=== PATIENT | female | born 1960 | race Native Hawaiian/Other Pacific Islander ===

== ENCOUNTER 2016-08-22 00:24 | Emergency (ER) | payer OTHER ==
[2016-08-22 00:42] VITALS: PULSE 99; TEMP 97.9
[2016-08-22 01:43] VITALS: RESP 16
--- NOTE | 2016-08-22 02:02 | C.PDOC ---
Time Seen by Provider: 08/22/16 01:03 Chief Complaint (Nursing): High Blood Pressure Past Medical History Vital Signs: Last Vital Signs Temp 97.9 F 08/22/16 00:36 Pulse 99 H 08/22/16 00:36 Resp 16 08/22/16 01:42 BP 134/80 08/22/16 01:42 Pulse Ox 100 08/22/16 00:36 - Medical History PMH: Arthritis, HTN - Social History Hx Alcohol Use: No Hx Substance Use: No - Immunization History Hx Tetanus Toxoid Vaccination: No Hx Influenza Vaccination: Yes Hx Pneumococcal Vaccination: Yes ED Course And Treatment O2 Sat by Pulse Oximetry: 100 (Room air) Pulse Ox Interpretation: Normal Disposition - Disposition Referrals: Non [facility] Provider, [Primary Care Provider] -
--- NOTE | 2016-08-22 02:05 | C.PDOC ---
History Of Present Illness 55 y.o female with history of CVA presents to the ED with complaints of high blood pressure 170/100 and mild headache. Patient reports she was at home and started feeling very worried and upset and then checked her BP. She states she has been feeling anxious and upset over recent loss in the family. She feels alone at home because her is currently hospitalized for pneumonia. Patient seen 2 weeks ago for TIA and has been having intermittent headaches since. She has right hemiparesis from old CVA. Time Seen by Provider: 08/22/16 01:03 Chief Complaint (Nursing): High Blood Pressure History Per: Patient, Family (Son) History/Exam Limitations: no limitations Onset/Duration Of Symptoms: Days, Intermittent Episodes Current Symptoms Are (Timing): Better Associated Symptoms: Headache. denies: Chest Pain Exacerbating Factor(s): Pos: Recently Missed Doses Of Medication Past Medical History Reviewed: Historical Data, Nursing Documentation, Vital Signs Vital Signs: Last Vital Signs Temp 97.9 F 08/22/16 00:36 Pulse 99 H 08/22/16 00:36 Resp 16 08/22/16 02:33 BP 136/85 08/22/16 02:33 Pulse Ox 98 08/22/16 02:33 - Medical History PMH: Arthritis, HTN Family History: States: Unknown Family Hx - Social History Hx Alcohol Use: No Hx Substance Use: No - Immunization History Hx Tetanus Toxoid Vaccination: No Hx Influenza Vaccination: Yes Hx Pneumococcal Vaccination: Yes Review Of Systems Constitutional: Negative for: Fever Cardiovascular: Negative for: Chest Pain, Palpitations Respiratory: Negative for: Cough, Shortness of Breath Gastrointestinal: Negative for: Vomiting, Abdominal Pain, Diarrhea Skin: Negative for: Rash, Bruising Neurological: Positive for: Weakness (right sided from prior CVA), Headache. Negative for: Numbness, Dizziness Psych: Positive for: Anxiety, Depression Physical Exam - Physical Exam Appears: Non-toxic, No Acute Distress Skin: Warm, Dry, No Diaphoretic, No Pale Head: Atraumatic, Normacephalic, No Tenderness, No Swelling Eye(s): bilateral: Normal Inspection, PERRL, EOMI Nose: Normal Oral Mucosa: Moist Neck: Normal ROM, Supple Chest: Symmetrical, No Tenderness Cardiovascular: Rhythm Regular, No Murmur Respiratory: Normal Breath Sounds, No Wheezing Gastrointestinal/Abdominal: Soft, No Tenderness, No Guarding Back: Normal Inspection, No Vertebral Tenderness, No Paraspinal Tenderness Extremity: No Tenderness, No Calf Tenderness, No Swelling, Other (Right arm contracture and hemiparesis) Pulses: Left Radial: Normal Neurological/Psych: Oriented x3, Normal Speech, Other (right sided hemiparesis) Gait: With Assistance (uses cane) ED Course And Treatment O2 Sat by Pulse Oximetry: 100 (Room air) Pulse Ox Interpretation: Normal - CT Scan/US CT Head w/o contrast Other Rad Studies (CT/US): Interpreted By Me, Read By Radiologist CT/US Interpretation: EXAM: CT Head Without Intravenous Contrast. CLINICAL HISTORY: 55 years old, female; Pain; Headache; Headache not specified; Additional info: HTN, headache, h. O. CVA. TECHNIQUE: Axial computed tomography images of the head/brain without intravenous contrast. This CT exam. was performed using one or more of the following dose reduction techniques: automated exposure. control, adjustment of the mA and/or kV according to patient size, and/or use of iterative. reconstruction technique. COMPARISON: No relevant prior studies available. FINDINGS: Brain: There is encephalomalacia at the left high parietal region compatible with old infarct. There is. no evidence of intracranial hemorrhage. No evidence of acute territorial infarction. Ventricles: Unremarkable. No ventriculomegaly. Bones/ joints: Unremarkable. No acute fracture. Soft tissues: Unremarkable. Sinuses: Unremarkable as visualized. No acute sinusitis. Mastoid air cells: Unremarkable as visualized. No mastoid effusion. IMPRESSION: 1. There is encephalomalacia at the left high parietal region compatible with old infarct. 2. No evidence for acute intracranial abnormality or displaced calvarial fracture. 3. Additional incidental and/or chronic findings as described. Medical Decision Making Medical Decision Making: Impression: 55 y.o female with HTN and likely anxiety Plan: * Head CT Progress: BP checked by me and is 134/80 Patient remained alert and oriented in no acute distress. Son and family at bedside. CT shows no acute intracranial abnormality. Patient is no longer anxious and feels comfortable going home. will discharge and instruct to follow up with primary doctor. Disposition Counseled Patient/Family Regarding: Diagnosis, Need For Followup - Disposition Referrals: Non [facility] Provider, [Primary Care Provider] - Disposition: HOME/ ROUTINE Disposition Time: 02:03 Condition: STABLE Additional Instructions: Follow up with your primary medical doctor or clinic in 2-5 days for further evaluation. Take your usual medications as prescribed. Return to the emergency department at any time if symptoms persist or worsen. Instructions: Anxiety (ED) - POA Present On Arrival: None - Clinical Impression Clinical Impression: H/O: CVA (cerebrovascular accident), Anxiety and depression, Feeling grief
[2016-08-22 02:34] VITALS: BP 136/85
[2016-08-22 03:23] VITALS: O2SAT 100
--- NOTE | 2016-08-22 08:22 | CT ---
PROCEDURE: CT HEAD WITHOUT CONTRAST. HISTORY: Hypertension, headache, h.o CVA COMPARISON: None available. TECHNIQUE: Axial computed tomography images were obtained through the head/brain without intravenous contrast. Radiation dose: Total exam DLP = 742 mGy-cm. This CT exam was performed using one or more of the following dose reduction techniques: Automated exposure control, adjustment of the mA and/or kV according to patient size, and/or use of iterative reconstruction technique. FINDINGS: HEMORRHAGE: No intracranial hemorrhage. BRAIN: No mass effect or edema. Encephalomalacia at the left high parietal region compatible with old infarct.Scattered focal lucencies in the subcortical and periventricular white matter suggestive for chronic microvascular ischemic change. VENTRICLES: Unremarkable. No hydrocephalus. CALVARIUM: Unremarkable. PARANASAL SINUSES: Unremarkable as visualized. No significant inflammatory changes. MASTOID AIR CELLS: Unremarkable as visualized. No inflammatory changes. OTHER FINDINGS: None. IMPRESSION: Encephalomalacia at the left high parietal region compatible with old infarct. Chronic microvascular ischemic changes. Additional findings as above. If focal neurologic deficit persists, consider MRI. These findings were preliminarily reported at 1:55 a.m. on 08/22/[address] Chaz Quigley from [facility].
== END 2016-08-22 02:32 | disposition home or self-care (01) ==
LOC: SUPCPDRO 00:24 → C.ER 00:24
DX: F41.8 Other specified anxiety disorders (principal); F43.21 Adjustment disorder with depressed mood; I69.351 Hemiplegia and hemiparesis following cerebral infarction affecting right dominant side; I10 Essential (primary) hypertension